=== PATIENT | female | born 1955 | race Caucasian/White ===

== ENCOUNTER 2020-10-15 15:48 | Outpatient (CLI) | payer MEDICARE, SELFPAY ==
--- NOTE | ~2020-10-15 | MM_ITS ---
EXAMINATION: MM screening scooter BI w lorie HISTORY: Screening mammogram TECHNIQUE: Craniocaudal and mediolateral oblique 3-D tomosynthesis images were obtained and synthetic 2-D images were generated. CAD analysis was submitted and interpreted. COMPARISON: 10/08/2019, 09/20/2018, 08/22/2017 bilateral digital screening mammogram examinations BREAST PARENCHYMAL COMPOSITION: There are scattered areas of fibroglandular density. FINDINGS: There is no evidence of suspicious mass, calcification, or architectural distortion to sugg est malignancy in either breast. There has been no suspicious interval change. IMPRESSION: 1. No mammographic evidence of malignancy. 2. Recommend routine screening mammography in one year. BI-RADS Category 1: Negative Reviewed, dictated and finalized at location A. DRAWER IN HELPER
== END 2020-10-15 15:49 | disposition home or self-care (01) ==
LOC: ANHIMG 15:53
PROVIDERS: PCP Obstetrics & Gynecology; Visit Provider Obstetrics & Gynecology
DX: Z12.31 Encounter for screening mammogram for malignant neoplasm of breast (principal)
CPT/HCPCS: 77063; 77067

== ENCOUNTER 2021-02-12 10:00 | Outpatient (RCR) | payer MEDICARE, SELFPAY ==
[2021-01-14 09:35] VITALS: BP_SYST 120
--- NOTE | 2021-01-14 10:31 | PTOPEVAL ---
PHYSICAL THERAPY EVALUATION AND PLAN OF CARE 01-14-21 Thank you for referring Juany Damon to [facility], for the diagnosis of L shoulder pain/strain.? She is scheduled to be seen for therapy? 0-2 x/week for 5 weeks. Juany will be out of town for one week of this timeframe. Please review, sign, date and return this plan of care CARLOS ENRIQUE. I agree with and certify that the following plan of care is medically necessary. Referring Physician Date Attending Provider: LINDA Potter PT Outpatient Evaluation Document 01/14/21 09:35 HARIS (Rec: 01/14/21 10:31 HARIS [id number]) Outpatient Past Medical History Past Medical History Source of Past Medical History Patient Neurological History Hx Neurological Disorders No Significant History Cardiovascular History Hx Hypercholesterolemia Yes: meds Hx Hypertension Yes: meds Respiratory History Hx Respiratory Disorders No Significant History Gastrointestinal History Hx Cholecystectomy Yes Hx Gastroesophageal Reflux Disease Yes Genitourinary History Hx Genitourinary Disorders No Significant History Musculoskeletal History Hx Arthritis Yes: hands,back,neck; Hx Orthopedic Surgery Yes: cervical fusion C 3-4-5 in 2006; Hx Other Musculoskeletal Disorders Yes: carpal tunnel/numb-tingle B hands,sleep wrist splints Endocrine History Hx Endocrine Disorders No Significant History HEENT History Hx HEENT Disorders No Significant History Evaluation Information Problem Diagnosis L shoulder pain/strain Onset May 2020 Subjective Information gradual increase in L shoulder Query Text:As Reported By Patient/ pain, no trauma or injury to Family shoulder Diagnostic Tests X-Rays For This Problem No MRI For This Problem No Other Tests For This Problem No Previous Treatments Previous Treatments For This Problem NO PT for shoulder Prior Level of Function Activity Level (Last 3 Months) Occupation retired Hand Dominance Right Activity of Daily Living Ability Independent Indoor/Home Mobility Independent Community Mobility Independent Stairs Ability Independent Functional Cognition (Planning, Shopping Independent , Taking Medications) Cooking Yes Cleaning Yes Laundry Yes Shopping Yes Driving Yes Comments Additional Prior Level of Function can do all self and home care, Comments increase pain L shoulder; Pain Assessment Timing of Pain Assessment Timing of Pain Assessment Assessment Pain Scale Pain Scale Used
--- NOTE | 2021-02-02 09:00 | PCPTNOTE ---
Patient called & cancelled scheduled appointment this date, no reason given.
--- NOTE | 2021-02-04 11:07 | PCPTNOTE ---
pt called and canceled due to being ill;
--- NOTE | 2021-02-12 10:36 | PTOPEVAL ---
PHYSICAL THERAPY DISCHARGE 02-12-21 Refer to the clinical summary below for her status compared to the initial evaluation. Discharge PT at this time. She is to continue with her home exercises. Thank you for [facility] to [facility] Please review, sign, date and return this Discharge CARLOS ENRIQUE. I agree with and certify that the following plan of care is medically necessary. Referring Physician Date Attending Provider: LINDA Potter Document 02/12/21 10:00 HARIS (Rec: 02/12/21 10:36 AHRIS [id number]) Assessment Status Discharge Subjective Information Juany reports: shoulder is Query Text:As Reported By Patient/ better, no longer have Family shooting pain down arm and lump is smaller; home exercises are helping; agree to discharge from PT at this time. Pain Assessment Timing of Pain Assessment Timing of Pain Assessment Assessment Pain Scale Pain Scale Used Numeric (1 - 10) Self Report Pain Assessment Left Shoulder(s) Reported Pain Level 0 Radicular Pain Location have chronic neck pain; shoulder no longer tender to touch/sore Pain Frequency Chronic,Intermittent Lowest Pain Intensity 0 Greatest Pain Intensity 3 Pain Aggravating Factors Exercise/Activity Other Pain Aggravating Factors raking made pain go up to 6/10 ; Pain Behaviors Grimacing,Guarding Pain Score Pain Score 0: Self Report Additional Pain Score Comments self assessment Quick DASH 16% limitation in activity; sleep without awakening due to shoulder pain; can lie on L side, if shoulder positioned correctly; take tylenol PRN for pain ~ 3 x in past week; can wash back with L arm, using back scrubber/brush; Interventions Used Interventions Used By Clinicians Exercise Upper Extremity Range of Motion Scapular/ Shoulder Range of Motion Left Shoulder Flexion - Active 140 Shoulder Abduction - Active 130 Shoulder Medial Rotation - Active thumb to lower edge scapula Query Text:Reach Behind the Back Shoulder Lateral Rotation - Active palm to back of head Query Text:Reach Behind the Head Scapular/Shoulder Range of Motion IR and abduction motion- Comments reports stretch; active range in standing; Upper Extremity Muscle Strength Testing General Upper Extremity Strength Gross Upper Extremity Strength
== END 2021-02-13 07:42 | disposition home or self-care (01) ==
LOC: ANHPT 10:00
PROVIDERS: PCP Obstetrics & Gynecology; Visit Provider Physician Assistant
DX: M25.512 Pain in left shoulder (principal)
CPT/HCPCS: 97110; 97140; 97161

== ENCOUNTER → 2021-05-09 08:00 | Outpatient (CLI) | payer MEDICARE, SELFPAY ==
[2021-05-09 19:27] LABS: SARS-CoV-2 RNA PCR Negative
== END ==
PROVIDERS: PCP Physician Assistant; Visit Provider Internal Medicine Gastroenterology
DX: Z01.812 Encounter for preprocedural laboratory examination (principal); Z20.822 Contact with and (suspected) exposure to COVID-19
CPT/HCPCS: C9803; U0003; U0005

== ENCOUNTER 2021-05-13 00:46 | Day surgery (SDC) | payer MEDICARE, SELFPAY ==
[2021-04-27 14:03] VITALS: BMI 30.2
[2021-05-13 07:09] VITALS: BP 118/79; PULSE 78; RESP 16; TEMP 35.7; O2SAT 100; BMI 29.8
[2021-05-13] MEDS: LACTATED RINGERS 1,000 ML 150 ML IV CONT (07:36)
--- NOTE | 2021-05-13 07:45 | WPDGICN ---
Assessment and Plan Assessment and plan (1) Encounter for screening colonoscopy: Code(s): Z12.11 - Encounter for screening for malignant neoplasm of colon Status: Acute (2) Family history of colonic polyps: Code(s): Z83.71 - Family history of colonic polyps Status: Acute Assessment and Plan: Patient's father is reported to have colon polyps. Because of this reason follow-up colonoscopy is suggested. GI Consult Note Consult date/time: 05/13/21 07:45 HPI: Juany Damon is a 65 year old female Presents for screening colonoscopy. Patient states that her current weight appetite bowel movements are normal. Her last colonoscopy was 2012. She states that her family history is significant her father had colon polyps. Patient states that her weight appetite bowel movements are normal. She denies abdominal pain. She has had no bleeding. Patient's past history is significant for esophagitis and acid reflux. She states this is currently well controlled. She has had no recent heartburn or dysphagia. Review of Systems Review of Systems: All systems reviewed & are unremarkable except as noted in HPI and below PMFSH Family History Family History (Updated 02/25/17 @ 23:56 by DOCTOR UNKNOWN) Sibling Hypertension Family history of elevated blood lipids Family history of diabetes mellitus in first degree relative Father Family history of coronary artery disease, Onset Age: 74 Patient's father is Mother Patient's mother is Social History Social History Smoking packs per day: 0.25 Smoking cigarettes per day: 5.0 Years smoked: 20 Smoking pack-years: 5.00 Smoking status: Former smoker Tobacco type: cigarettes Alcohol intake: never Alcohol use details: occasional Substance use: never Substance use type: does not use Living arrangements: alone Gender identity (if verbalized by the patient): Female Sexual Orientation (if Verbalized by the Patient): Straight or Heterosexual Spiritual care concerns: No Meds Home Medications and Allergies Home Medications Medication Instructions Recorded Confirmed Type sod picosulf 10 mg-magnes 3.5 160 ml PO Q6H #160 ml 04/16/21 05/13/21 Rx gram-citric 12 gram/160 mL oral solution atenolol-chlorthalidone 1 tablet PO DAILY 04/27/21 05/13/21 History lansoprazole [Prevacid 24Hr] 15 mg PO DAILY 04/27/21 05/13/21 History Allergies Allergy/AdvReac Type Severity Reaction Status Date / Time codeine Allergy Unknown Itching Verified 05/13/21 07:08 metaxalone Allergy Unknown Unknown Verified 05/13/21 07:08 naproxen Allergy Unknown Swelling Verified 05/13/21 07:08 NSAIDS (Non-Steroidal Allergy Unknown SWELLING Verified 05/13/21 07:08 Anti-Inflamma tramadol Allergy Unknown light Verified 05/13/21 07:08 headed, dizzy verapamil Allergy Unknown Unknown Verified 05/13/21 07:08 Vital Signs Vital Signs - 24 hr 05/13/21 07:09 Temperature 96.2 F L Pulse Rate 78 Respiratory Rate 16 Blood Pressure 118/79 Pulse Oximetry 100 Exam Narrative: Exam Narrative: Physical exam reveals patient be alert. Vital signs stable. HEENT exam is unremarkable. Patient is anicteric. Lungs are clear to auscultation and percussion. Heart is without murmur or extra sounds. Abdominal exam bowel sounds are present soft nontender with no organomegaly. Digital external rectal exam is normal.
--- NOTE | 2021-05-13 08:02 | WPDANESEPPF ---
Anes - Initial Pre Proc Eval Procedure: Operation Date: 05/13/21 08:30 Proposed Procedures p Screening Colonoscopy - Jaxson Randolph MD Date/Time: 05/13/21 08:02 Surgeon: Jaxson Randolph MD Pre Op Diagnosis: neoplasm screening Patient Data Age: 65 Gender: F Height: 1.57 m Weight: 74 kg Last Vital Signs Temp 96.2 F L 05/13/21 07:09 Pulse 78 05/13/21 07:09 Resp 16 05/13/21 07:09 BP 118/79 05/13/21 07:09 Pulse Ox 100 05/13/21 07:09 Allergies Allergy/AdvReac Type Severity Reaction Status Date / Time codeine Allergy Unknown Itching Verified 05/13/21 07:08 metaxalone Allergy Unknown Unknown Verified 05/13/21 07:08 naproxen Allergy Unknown Swelling Verified 05/13/21 07:08 NSAIDS (Non-Steroidal Allergy Unknown SWELLING Verified 05/13/21 07:08 Anti-Inflamma tramadol Allergy Unknown light Verified 05/13/21 07:08 headed, dizzy verapamil Allergy Unknown Unknown Verified 05/13/21 07:08 Home Medications Medication Instructions Recorded Confirmed Type sod picosulf 10 mg-magnes 3.5 160 ml PO Q6H #160 ml 04/16/21 05/13/21 Rx gram-citric 12 gram/160 mL oral solution atenolol-chlorthalidone 1 tablet PO DAILY 04/27/21 05/13/21 History lansoprazole [Prevacid 24Hr] 15 mg PO DAILY 04/27/21 05/13/21 History Patient hx anesthesia problems: none Family hx anesthesia problems: none PMFSH Past Medical History Medical History (Updated 05/13/21 @ 07:57 by Shun Cantu MD) GERD (gastroesophageal reflux disease) Hyperlipidemia Hypertension Family History Family History (Updated 02/25/17 @ 23:56 by DOCTOR UNKNOWN) Sibling Hypertension Family history of elevated blood lipids Family history of diabetes mellitus in first degree relative Father Family history of coronary artery disease, Onset Age: 74 Patient's father is Mother Patient's mother is Social History Social History Smoking packs per day: 0.25 Smoking cigarettes per day: 5.0 Years smoked: 20 Smoking pack-years: 5.00 Smoking status: Former smoker Tobacco type: cigarettes Alcohol intake: never Alcohol use details: occasional Substance use: never Substance use type: does not use Living arrangements: alone Gender identity (if verbalized by the patient): Female Sexual Orientation (if Verbalized by the Patient): Straight or Heterosexual Spiritual care concerns: No Anes - Eval Final PreProcedure Day of Procedure 05/13/21 08:02 Patient weight: overweight Heart: regular rate and rhythm Lungs: clear to auscultation Airway: Mallampati scale class II Neurological: alert and oriented Last oral intake: >/= 8 hours ASA classification: III Emergent: no Anesthetic plan: proceed Anesthesia type and monitoring: general GIVS and standard monitoring Informed Consent: The patient's anesthetic plan and its attendant risks and benefits were discussed with the patient/family/POA. Questions were solicited and answers provided to the satisfaction of the patient/family/POA.
[2021-05-13 08:37] VITALS: BP 106/62; PULSE 74; RESP 18; O2SAT 100
[2021-05-13 08:47] VITALS: BP 106/66; PULSE 71; RESP 19; O2SAT 98
[2021-05-13 08:57] VITALS: BP 128/78; PULSE 71; RESP 19; O2SAT 100
== END 2021-05-13 09:03 | disposition home or self-care (01) ==
PROVIDERS: PCP Physician Assistant; Visit Provider Internal Medicine Gastroenterology
PROC: 0DJD8ZZ Inspection of Lower Intestinal Tract, Via Natural or Artificial Opening Endoscopic (ICD-10-PCS; CPT 45378; principal; 2021-05-13 08:30)
DX: Z12.11 Encounter for screening for malignant neoplasm of colon (principal); K64.8 Other hemorrhoids; K57.30 Diverticulosis of large intestine without perforation or abscess without bleeding; Z83.71 Family history of colonic polyps; K21.9 Gastro-esophageal reflux disease without esophagitis; I10 Essential (primary) hypertension; E78.5 Hyperlipidemia, unspecified; Z87.891 Personal history of nicotine dependence
CPT/HCPCS: G0105; C9803; J2704; J7120; U0003; U0005

== ENCOUNTER → 2021-11-19 13:54 | Outpatient (CLI) | payer MEDICARE, SELFPAY ==
--- NOTE | ~2021-11-19 | MM_ITS ---
EXAMINATION: MM screening [facility] BI w lorie HISTORY: Screening TECHNIQUE: Craniocaudal and mediolateral oblique 3-D tomosynthesis images were obtained and synthetic 2-D images were generated. CAD analysis was submitted and interpreted. COMPARISON: Comparison to multiple prior studies sequentially, with oldest reviewed study dated 09/22. BREAST PARENCHYMAL COMPOSITION: There are scattered areas of fibroglandular density. FINDINGS: There is no evidence of suspicious mass, calcification, or architectural distortion to sugg est malignancy in either breast. There has been no suspicious interval change. IMPRESSION: 1. No mammographic evidence of malignancy. 2. Recommend routine screening mammography in one year. BI-RADS Category 1: Negative Reviewed, dictated and finalized at location A. RIOR DESIGN PRINCIPAL
== END ==
PROVIDERS: PCP Physician Assistant; Visit Provider Physician Assistant
DX: Z12.31 Encounter for screening mammogram for malignant neoplasm of breast (principal)
CPT/HCPCS: 77063; 77067

== ENCOUNTER → 2023-01-26 12:04 | Outpatient (CLI) | payer MEDICARE, SELFPAY ==
--- NOTE | ~2023-01-26 | MM_ITS ---
EXAMINATION: MM screening [facility] BI w lorie HISTORY: Screening mammogram TECHNIQUE: Craniocaudal and mediolateral oblique 3-D tomosynthesis images were obtained and synthetic 2-D images were generated. CAD analysis was submitted and interpreted. COMPARISON: 11/19/2021, 10/15/2020, 10/08/2019 BREAST PARENCHYMAL COMPOSITION: There are scattered areas of fibroglandular density. FINDINGS: No suspicious mass, calcification, or architectural distortion are identified in either nicanor ast to suggest malignancy. There has been no suspicious interval change. IMPRESSION: 1. No mammographic evidence of malignancy. 2. Recommend routine screening mammography in one year. BI-RADS Category 1: Negative Reviewed, dictated and finalized at location A. DENTIAL FINISH CARPENTER
== END ==
PROVIDERS: PCP Internal Medicine Gastroenterology; Visit Provider Physician Assistant
DX: Z12.31 Encounter for screening mammogram for malignant neoplasm of breast (principal)
CPT/HCPCS: 77063; 77067

== ENCOUNTER → 2023-03-21 13:45 | Outpatient (CLI) | payer MEDICARE, SELFPAY ==
--- NOTE | ~2023-03-21 | XR_ITS ---
EXAMINATION: XR lumbar spine min 4V DATE: 03/21/2023 14:13 INDICATION: Low back pain, unspecified. TECHNIQUE: 5 views of lumbar spine were obtained. COMPARISON: None. FINDINGS: There is 3 mm anterolisthesis of L4 on L5. There is mild chronic anterior wedging of L1 hi tebral body. There is mildly decreased disc height at L1-L2, L2-L3, and L4-L5 and severely decreased disc height at L5-S1 with endplate remodeling. There is multilevel facet joint osteoarthritis, severe bilaterally from L3-L4 through L5-S1. Surgical clips in the right upper quadrant are likely from cho lecystectomy. IMPRESSION: 1. Severe lumbar spondylosis. Reviewed, dictated and finalized at location A.
== END ==
PROVIDERS: PCP Internal Medicine Gastroenterology; Visit Provider Internal Medicine Gastroenterology
DX: M47.896 Other spondylosis, lumbar region (principal)
CPT/HCPCS: 72110

== ENCOUNTER 2024-02-07 12:22 | Outpatient (CLI) | payer MEDICARE, SELFPAY ==
--- NOTE | ~2024-02-07 | MM_ITS ---
EXAMINATION: MM screening scooter BI w lorie HISTORY: Screening TECHNIQUE: Craniocaudal and mediolateral oblique 3-D tomosynthesis images were obtained and synthetic 2-D images were generated. CAD analysis was submitted and interpreted. COMPARISON: Comparison to multiple prior studies sequentially, with oldest reviewed study dated 12/2016. BREAST PARENCHYMAL COMPOSITION: Not dense: There are scattered areas of fibroglandular density. FINDINGS: There is no evidence of suspicious mass, calcification, or architectural distortion to sugg est malignancy in either breast. There has been no suspicious interval change. IMPRESSION: 1. No mammographic evidence of malignancy. 2. Recommend routine screening mammography in one year. BI-RADS Category 1: Negative Reviewed, dictated and finalized at location A.
== END 2024-02-07 12:23 ==
LOC: MICIMG 12:23
PROVIDERS: PCP Internal Medicine Gastroenterology; Visit Provider Internal Medicine Gastroenterology
DX: Z12.31 Encounter for screening mammogram for malignant neoplasm of breast (principal)
CPT/HCPCS: 77063; 77067

== ENCOUNTER 2024-05-03 15:47 | Outpatient (CLI) | payer MEDICARE, SELFPAY ==
--- NOTE | ~2024-05-03 | XR_ITS ---
XR hip LT min 3V w AP pelvis Ordering provider: Nena Knox, History: . Sacrococcygeal disorders, not elsewhere classified . Comparison: December 30, 2015 FINDINGS: BONES: No acute fracture or dislocation. HIP JOINT SPACES: Mild bilateral osteoarthritic changes. SACROILIAC JOINT SPACES/LUMBAR SPINE: The sacroiliac joint spaces are normal. Mild degenerative valles es of the visualized lower lumbar spine. PUBIC SYMPHYSIS: Normal. SOFT TISSUES: Normal. IMPRESSION: No acute osseous abnormality pelvis and left hip. Reviewed, dictated and finalized at location A.
== END 2024-05-03 15:48 ==
PROVIDERS: PCP Internal Medicine Gastroenterology; Visit Provider Internal Medicine Gastroenterology
DX: M53.3 Sacrococcygeal disorders, not elsewhere classified (principal)
CPT/HCPCS: 73502

== ENCOUNTER 2025-02-08 12:17 | Outpatient (CLI) | payer MEDICARE, SELFPAY ==
--- NOTE | ~2025-02-08 | MM_ITS ---
EXAMINATION: MM screening scooter BI w lorie HISTORY: Screening TECHNIQUE: Craniocaudal and mediolateral oblique 3-D tomosynthesis images were obtained and synthetic 2-D images were generated. CAD analysis was submitted and interpreted. COMPARISON: Comparison to multiple prior studies sequentially, with oldest reviewed study dated 08/23. BREAST PARENCHYMAL COMPOSITION: Not dense: There are scattered areas of fibroglandular density. FINDINGS: There is no evidence of suspicious mass, calcification, or architectural distortion to sugg est malignancy in either breast. There has been no suspicious interval change. IMPRESSION: 1. No mammographic evidence of malignancy. 2. Recommend routine screening mammography in one year. BI-RADS Category 1: Negative Reviewed, dictated and finalized at location B.
== END 2025-02-08 12:18 | disposition home or self-care (01) ==
LOC: MICIMG 12:18
PROVIDERS: PCP Internal Medicine Gastroenterology; Visit Provider Internal Medicine Gastroenterology
DX: Z12.31 Encounter for screening mammogram for malignant neoplasm of breast (principal)
CPT/HCPCS: 77063; 77067

== ENCOUNTER 2025-09-18 11:38 | Outpatient (CLI) | payer MEDICARE, SELFPAY ==
--- NOTE | ~2025-09-18 | XR_ITS ---
EXAMINATION: XR foot RT min 3V, 09/18/2025 11:45 CDT HISTORY: Pain in right foot x3 DAYS COMPARISON: No comparisons available. Findings: No acute fracture or malalignment. No significant degenerative changes. Soft tissues unremarkable. Impression: No acute fracture or malalignment. Reviewed, dictated and finalized at location P. Impression: No acute fracture or malalignment.
== END 2025-09-18 11:39 | disposition home or self-care (01) ==
PROVIDERS: PCP Emergency Medicine; Visit Provider Emergency Medicine
DX: M79.671 Pain in right foot (principal)
CPT/HCPCS: 73630

== ENCOUNTER 2025-10-25 09:39 | Outpatient (CLI) | payer MEDICARE, SELFPAY ==
--- NOTE | ~2025-10-25 | DEXA_ITS ---
Bone Density Report Name: MONICA BURKS Age: 70 Sex: Female Ethnicity: White Date of : 1955 Indication: osteopenia; Referring Provider: JULES, HERBERTH Reaves Study: Bone densitometry was performed. Exam Date: October 25, 2025 Accession number: [id number] Bone Density: Region BMD T-score Z-score Classification AP Spine(L1-L4) 1.036 -0.1 2.1 Normal Femoral Neck (Left) 0.630 -2.0 -0.1 Osteopenia Total Hip (Left) 0.758 -1.5 0.1 Osteopenia Femoral Neck (Right) 0.672 -1.6 0.3 Osteopenia Total Hip (Right) 0.710 -1.9 -0.3 Osteopenia Total Hip Mean 0.734 -1.7 -0.1 Osteopenia World Health Organization criteria for BMD impression classify patients as: Normal (T-score at or above -1.0), Osteopenia (T-score between -1.0 and -2.5), or Osteoporosis (T-score at or below -2.5). 10-year Fracture Risk(1): Major Osteoporotic Fracture 12% Hip Fracture 3.7% Reported Risk Factors: [place] (), Neck BMD=0.630, BMI=28.2, smoking (1) FRAX(R) Version 3.08. Fracture probability calculated for an untreated patient. Fracture probability may be lower if the patient has received treatment. Previous Exams: -- Region Exam Age BMD T-score BMD Change BMD Change Date g/cm2 vs Baseline vs Previous -- AP Spine (L1-L4) 10/25/2025 70 1.036 -0.1 -7.1%* 1.8% 10/30/2018 63 1.018 -0.3 -8.7%* -8.7%* 04/04/2009 53 1.115 0.6 Total Hip(Left) 10/25/2025 70 0.758 -1.5 -20.3%* -11.7%* 10/30/2018 63 0.858 -0.7 -9.8%* -9.8%* 04/04/2009 53 0.951 0.1 Total Hip(Right) 10/25/2025 70 0.710 -1.9 -18.5%* -11.5%* 10/30/2018 63 0.802 -1.2 -7.9%* -7.9%* 04/04/2009 53 0.870 -0.6 -- *Denotes significance at 95% confidence level, LSC for AP Spine = 0.022 g/cm2, LSC for Total Hip = 0.027 g/cm2 Clinical Information Provided by Patient: Smokes Has used the following medications: Vitamin D Patient maximum height was 62 Menopause Age: 49 No regular weight bearing exercise Does not regularly consume dairy products Drinks caffeinated beverages Onset of menses at age 14 Number of children 2 Impression: The patient has low bone mass, based on the Left Femoral Neck T-score. The patient has an estimated ten-year risk of hip fracture of 3.7% and an estimated ten-year risk of major fracture of 12%, based on the WHO FRAX algorithm. The patient has risk factors, including: smoking. The BMD for the Total Hip(Left) decreased, changing by -11.7% since the last DXA exam. The BMD for the Total Hip(Right) decreased, changing by -11.5% since the last DXA exam. Discussion: BONE DENSITY IS LOW AT ONE OR MORE SKELETAL SITES. THE PATIENT'S BMD AND CLINICAL RISK FACTORS CONTRIBUTE TO THIS PATIENT'S INCREASED RISK OF FRACTURE. This patient's lowest T-score is low at one or more skeletal sites. It meets the World Health Organization's (WHO) criteria for ?low bone mass? (T-score between -1.0 and -2.5). The patient's 10-year risk of hip fracture as calculated by FRAX exceeds the threshold where pharmacological therapy is recommended by the National Osteoporosis Foundation (NOF). However, all treatment decisions require clinical judgment and consideration of individual patient factors, including patient preferences, comorbidities, previous drug use, risk factors not captured in the FRAX model (e.g., frailty, falls, vitamin D deficiency, increased bone turnover, interval significant decline in bone density) and possible under or overestimation of fracture risk by FRAX. The patient should follow a healthful lifestyle (good nutrition with adequate calcium and vitamin D, and appropriate weight-bearing exercise). Follow-Up: Consider a repeat BMD and Vertebral Fracture Assessment (VFA) exam in 2 years or sooner if medically necessary, to reassess this patient's status. Reported by: IAIN on 10/25/2025 9:55:00 AM. Reviewed, dictated and finalized at location A.
== END 2025-10-25 09:40 | disposition home or self-care (01) ==
LOC: MICIMG 09:41
PROVIDERS: PCP Emergency Medicine; Visit Provider Emergency Medicine
DX: M85.88 Other specified disorders of bone density and structure, other site (principal); M85.852 Other specified disorders of bone density and structure, left thigh; M85.851 Other specified disorders of bone density and structure, right thigh
CPT/HCPCS: 77080